=== PATIENT | female | born 1960 | race Caucasian/White ===

== ENCOUNTER 2022-07-27 12:27 | Emergency (ER) | payer SELFPAY ==
[~2022-07-27] VITALS: Ht 167.6 cm; Wt 70.0 kg
[2022-07-27 13:26] LABS: BASOPHILS % (AUTO) 0.3 % (0-1); EOSINOPHILS % (AUTO) 0.4 % (0-6); HEMATOCRIT 43.7 % (35.0-45.0); HEMOGLOBIN 14.7 g/dl (12.0-16.0); LYMPHOCYTES # (AUTO) 1.7 X10'3 (1.1-4.8); LYMPHOCYTES % (AUTO) 14.3 % (21-51); MEAN CORPUSCULAR HEMOGLOBIN 29.8 PG (27.0-31.0); MEAN CORPUSCULAR HGB CONC 33.7 g/dL (33.0-36.5); MEAN CORPUSCULAR VOLUME 88.5 FL (78-98); MEAN PLATELET VOLUME 7.9 FL (7.4-10.4); MONOCYTES # (AUTO) 0.9 X10'3 (0-0.9); MONOCYTES % (AUTO) 7.5 % (2-12); NEUTROPHILS # (AUTO) 9.1 X10'3 (1.8-7.7); NEUTROPHILS % (AUTO) 77.5 % (42-75); PLATELET COUNT 226 X10'3 (140-440); RED BLOOD COUNT 4.94 X10'6 (4.20-5.60); RED CELL DISTRIBUTION WIDTH 13.4 % (11.5-14.5); WHITE BLOOD COUNT 11.7 X10'3 (4.5-11.0)
[2022-07-27 13:32] LABS: URINE HCG NEGATIVE (NEG)
[2022-07-27 13:40] LABS: CLARITY,URINE CLOUDY (Clear); COLOR,URINE YELLOW (Yellow); GLUCOSE, URINE NEGATIVE (Neg); KETONES,URINE NEGATIVE (Neg); LEUKOCYTE ESTERASE ,URINE NEGATIVE (Neg); NITRITES, URINE NEGATIVE (Neg); OCCULT BLOOD,URINE NEGATIVE (Neg); PROTEIN,URINE NEGATIVE (Neg); UROBILINOGEN,URINE 0.2 E.U/dL (0.2-1.0)
[2022-07-27 13:41] LABS: ALANINE AMINOTRANSFERASE 48 U/L (12-78); ALBUMIN 4.3 G/DL (3.4-5.0); ALBUMIN/GLOBULIN RATIO 1.2 (1.1-1.5); ALKALINE PHOSPHATASE 80 IU/L (46-116); ANION GAP 7 (8-16); ASPARTATE AMINO TRANSFERASE 30 U/L (10-37); BILIRUBIN,TOTAL 0.5 MG/DL (0.1-1.0); BLOOD UREA NITROGEN 16 MG/DL (7-18); CALCIUM 9.9 MG/DL (8.5-10.1); CHLORIDE 101 MMOL/L (99-107); CREATININE 0.84 MG/DL (0.40-0.90); GLUCOSE 123 MG/DL (70-104); LIPASE 76 U/L (73-393); POTASSIUM 3.8 MMOL/L (3.5-5.1); SODIUM 139 MMOL/L (135-145); TOTAL CARBON DIOXIDE 30.8 MMOL/L (24-32); TOTAL PROTEIN 7.9 G/DL (6.4-8.2); eGFR 69 ML/MIN
[2022-07-27 13:58] LABS: UA COLLECTION TYPE CLN CATCH MIDSTREAM
[2022-07-27 14:00] LABS: MUCUS STRANDS MANY /LPF (Neg); SQUAMOUS EPITHELIAL CELL,UR MODERATE /LPF (FEW)
[2022-07-27 14:01] LABS: BACTERIA,URINE 1+ /HPF (Neg)
[2022-07-27] MEDS ORDERED: ondansetron/PF 4mg/2ml inj IV ONE (14:30)
[2022-07-27] MEDS ORDERED: ASPI-1265 PO (14:30)
[2022-07-27] MEDS ORDERED: normal saline 1000ml 1,000 ML IV ONE (14:30)
[2022-07-27] MEDS ORDERED: CefTRIAXone 2gm/D5W 50ml BAG 50 ML IV ONE (14:30)
[2022-07-27] MEDS ORDERED: ATOR40TA7 PO (14:32)
[2022-07-27] MEDS ORDERED: ketorolac trometh. 30mg/ml inj. IV ONE (14:53)
[2022-07-27 16:48] VITALS: BP 155/87
[2022-07-27] MEDS ORDERED: CEPH-585 PO (16:49)
[2022-07-27] MEDS ORDERED: HYDR-3965 PO ×2 (16:49→16:50)
[2022-07-27] MEDS ORDERED: ONDA4TAB12 PO (16:49)
[2022-07-27] MEDS ORDERED: FLO0.4C PO (16:49)
== END 2022-07-27 17:24 | disposition home or self-care (01) ==
LOC: ER 12:29
DX: N23 Unspecified renal colic (principal); K80.50 Calculus of bile duct without cholangitis or cholecystitis without obstruction; I10 Essential (primary) hypertension; E78.00 Pure hypercholesterolemia, unspecified
CPT/HCPCS: 36415; 74176; 80053; 81001; 81025; 83690; 85025; 87088; 96365; 96375; 99285; J0696; J1885; J2405; J7030; 87077; 87186